=== PATIENT | male | born 1965 | race Caucasian/White ===

== ENCOUNTER 2017-09-26 10:12 | Emergency (ER) | payer OTHER ==
[~2017-09-26] VITALS: Ht 157.5 cm; Wt 95.0 kg
[2017-09-26 10:13] VITALS: BP 184/112; PULSE 75; RESP 14; TEMP 98.7; O2SAT 98
[2017-09-26] MEDS ORDERED: CYCL10TA PO (10:36)
[2017-09-26] MEDS ORDERED: TRAM50 PO (10:36)
--- NOTE | 2017-09-26 10:41 | PD ---
HPI . Low back pain Chief Complaint: Back/ Neck Pain or Injury Time Seen by Provider: 10:30 Travel History International Travel<30 days: No Contact w/Intl Traveler<30days: No Traveled to known affect area: No History of Present Illness HPI Patient presents with a chief complaint of low back pain which started acutely after lifting a heavy wheel barrel full of mulch 2 days ago. Pain is located in his right low back. It is exacerbated by movement. It is rated 9/10. It has been somewhat relieved by a single dose of ibuprofen. He denies any bowel or bladder incontinence or retention. He denies any perineal anesthesia. He denies any leg weakness. He has not been running a fever. [facility] Social History Tobacco Use: No Allergies-Medications (Allergen,Severity, Reaction): Coded Allergies: No Known Allergies (Unverified , 09/26/17) Reported Meds & Prescriptions Reported Meds & Active Scripts Active Flexeril (Cyclobenzaprine HCl) 10 Mg Tab 10 Mg PO TID Ultram (Tramadol HCl) 50 Mg Tab 50 Mg PO Q4H PRN Review of Systems Except as stated in HPI: all other systems reviewed are Neg General / Constitutional: No: Fever, Chills Genitourinary: No: Incontinence Musculoskeletal: Positive: Myalgias, Pain (right low back pain) Neurologic: No: Weakness, Paresthesia, Incontinence Physical Exam Narrative GENERAL: Awake and alert and in no acute distress. SKIN: Warm and dry. HEAD: Normocephalic/atraumatic. EYES: Pupils are equal. Extraocular movements are intact. NECK: Normal range of motion. CARDIOVASCULAR: Regular rate and rhythm. RESPIRATORY: Nonlabored respirations. MUSCULOSKELETAL: Atraumatic. Tenderness in the paraspinous muscles of the right low back. NEUROLOGICAL: Nonfocal. PSYCHIATRIC: Appropriate mood and affect. Data Data Last Documented VS Vital Signs Date Time Temp Pulse Resp B/P (MAP) Pulse Ox O2 Delivery O2 Flow Rate FiO2 09/26/17 10:13 98.7 75 14 184/112 (136) 98 Orders Orders Ed Discharge Order (09/26/17 10:38) [facility] Medical Decision Making Medical Screen Exam Complete: Yes Emergency Medical Condition: Yes Differential Diagnosis Differential diagnosis includes but is not limited to muscular low back pain, DDD, spinal stenosis, epidural abscess, sciatica, kidney infection or stone. Narrative Course This patient presents complaining with right low back pain after lifting something heavy a couple of days ago. He does not have any concerning signs or symptoms. He has tenderness in the right paraspinous muscles with pain exacerbated by movement. He will be treated for a low back strain with Ultram and Flexeril. Diagnosis Primary Impression: Low back strain Qualified Codes: S39.012A - Strain of muscle, fascia and tendon of lower back , initial encounter Patient Instructions: General Instructions, Low Back Strain (ED) Departure Forms: Tests/Procedures Scripts Cyclobenzaprine (Flexeril) 10 Mg Tab 10 MG PO TID for Muscle Spasm, #30 TAB 0 Refills Prov: Luh Russo MD 09/26/17 Tramadol (Ultram) 50 Mg Tab 50 MG PO Q4H Y for PAIN, #12 TAB 0 Refills Prov: Luh Russo MD 09/26/17 Disposition: 01 DISCHARGE HOME Condition: Stable Luh Russo MD Sep 26, 2017 10:41
== END 2017-09-26 11:15 | disposition home or self-care (01) ==
LOC: NEPD 10:12
DX: S39.012A Strain of muscle, fascia and tendon of lower back, initial encounter (principal); X50.0XXA Overexertion from strenuous movement or load, initial encounter; Y93.89 Activity, other specified
CPT/HCPCS: 99284

== ENCOUNTER 2018-01-09 21:42 | Emergency (ER) | payer OTHER ==
[~2018-01-09] VITALS: Ht 157.5 cm; Wt 98.8 kg
[~2018-01-09 21:42] MED LIST: CYCL10TA PO; TRAM50 PO
[2018-01-09 21:48] VITALS: BP 160/93; PULSE 76; RESP 18; TEMP 97.9; O2SAT 97
[2018-01-09] MEDS ORDERED: GABA300C5 PO (22:03)
[2018-01-09] MEDS ORDERED: LISI-515 PO (22:03)
[2018-01-09 22:33] LABS: BICARBONATE 29.4 MEQ/L (21.0-32.0); CALCIUM 8.6 MG/DL (8.5-10.1)
--- NOTE | 2018-01-09 22:35 | RADRPT ---
EXAM DATE/TIME: 01/09/2018 22:10 [place] COMPARISON: No previous studies available for comparison. INDICATIONS : Joint pain in foot. MEDICAL HISTORY : None. SURGICAL HISTORY : None. ENCOUNTER: Initial ACUITY: 1 day PAIN SCORE: 10/10 LOCATION: Left foot, plantar 1st MCPJ FINDINGS: Three view examination of the left foot demonstrates no dislocation, or fracture. There is some soft tissue swelling at the first metatarsophalangeal joint. The tarsal bones appear intact. The interph alangeal and metatarsophalangeal joints are intact. The calcaneus is intact. Bony mineralization is normal. CONCLUSION: 1. Soft tissue swelling at the first metatarsal-phalangeal joint. 2. Otherwise, unremarkable exam for patient's age. Anirudh Lopez MD on January 09, 2018 at 22:31 Board Certified Radiologist. This report was verified electronically.
[2018-01-09 22:37] LABS: CREATININE 1.2 MG/DL (0.60-1.30)
--- NOTE | 2018-01-09 22:47 | PD ---
HPI Chief Complaint: Pain: Acute or Chronic Time Seen by Provider: 21:54 Travel History International Travel<30 days: No Contact w/Intl Traveler<30days: No Traveled to known affect area: No History of Present Illness HPI Patient presents to the emergency department stating that he has a history of gout that was first diagnosed 2 months ago at a hospital in [place]. States that no labs or x-rays were done to confirm the diagnosis. Advises that he was given some pills but unsure of the name. Presents to the ER complaining of pain in the first toe of the left foot. He denies any trauma injury to the affected extremity, fever, chills, nausea, or vomiting. States symptoms are consistent with his initial presentation for gout at the outside hospital. PFSH Past Medical History Diminished Hearing: No Gout: Yes Hypertension: Yes ?: Not Past Surgical History Other Surgery: Yes (HERNIA ) Social History Alcohol Use: No Tobacco Use: No Substance Use: No Allergies-Medications (Allergen,Severity, Reaction): Coded Allergies: No Known Allergies (Unverified , 01/09/18) Reported Meds & Prescriptions Reported Meds & Active Scripts Active Tramadol (Tramadol HCl) 50 Mg Tab 50 Mg PO Q6H PRN 3 Days Prednisone 20 Mg Tab 40 Mg PO DAILY 5 Days Take 40 mg (2 tablets) daily for 5 days Reported Gabapentin 300 Mg Cap 300 Mg PO BID Lisinopril 20 Mg Tab 20 Mg PO DAILY Review of Systems Except as stated in HPI: all other systems reviewed are Neg Physical Exam Narrative GENERAL: No acute distress. SKIN: Focused skin assessment warm/dry. HEAD: Atraumatic. Normocephalic. EYES: Extraocular muscles intact bilaterally. No scleral icterus. No injection or drainage. ENT: No nasal bleeding or discharge. Mucous membranes pink and moist. NECK: Trachea midline. No JVD. CARDIOVASCULAR: Regular rate and rhythm. No murmur appreciated. RESPIRATORY: No accessory muscle use. Clear to auscultation. Breath sounds equal bilaterally. GASTROINTESTINAL: Abdomen soft, non-tender, nondistended. Hepatic and splenic margins not palpable. MUSCULOSKELETAL: Left foot: Sensation intact, 2+ DP pulse, tender to palpation at the base of the first toe with swelling. NEUROLOGICAL: Awake and alert. No obvious cranial nerve deficits. Motor grossly within normal limits. Normal speech. PSYCHIATRIC: Appropriate mood and affect; insight and judgment normal. Data Data Last Documented VS Vital Signs Date Time Temp Pulse Resp B/P (MAP) Pulse Ox O2 Delivery O2 Flow Rate FiO2 01/09/18 21:48 97.9 76 18 160/93 (115) 97 Orders Orders Basic Metabolic Panel (Bmp) (01/09/18 22:02) Foot, Complete (Cyt4yss) (01/09/18 22:02) Uric Acid (01/09/18 22:02) Labs Laboratory Tests Test 01/09/18 22:15 Blood Urea Nitrogen 14 MG/DL Creatinine 1.20 MG/DL Random Glucose 152 MG/DL Calcium Level 8.6 MG/DL Uric Acid 9.0 MG/DL Sodium Level 140 MEQ/L Potassium Level 3.5 MEQ/L Chloride Level 104 MEQ/L Carbon Dioxide Level 29.4 MEQ/L Anion Gap 7 MEQ/L Estimat Glomerular Filtration Rate 63 ML/MIN MDM Medical Decision Making Medical Screen Exam Complete: Yes Emergency Medical Condition: Yes Interpretation(s) Labs: Glucose slightly increased; uric acid-> increased Last Impressions Foot X-Ray 01/09/182201 Signed Impressions: Service Date/Time: Thursday, January 09, 2018 22:10 - CONCLUSION: 1. Soft tissue swelling at the first metatarsal-phalangeal joint. 2. Otherwise, unremarkable exam for patient's age. Anirudh Lopez MD Differential Diagnosis Gout, arthritis, nonspecific musculoskeletal pain, fracture, dislocation Narrative Course Patient presents to the emergency department complaining of pain in the first great toe left foot. States that he has a history of gout but no prior blood work or radiographic studies were done to confirm the diagnosis. Will get x- ray of left foot and will check basic chem and uric acid. Physician Communication Physician Communication Spoke to Dr. Avalos (?) in ER at [facility] in [place] where the patient stated he was initially diagnosed and treated for gout. Patient had a XR and d/c 'd with prednisone 40mg QD x 5 days, traamdol 50mg, and cataflam 50mg TID prn x 7 days for gout when he presented to their facility. He states that the medicine helped him "alot." Diagnosis Primary Impression: Gout Qualified Codes: M1A.9XX0 - Chronic gout, unspecified, without tophus (tophi) Patient Instructions: General Instructions, Gout (ED) Additional Instructions: 1. Meds as directed. 2. Follow-up with primary care doctor in 24-48 hours. 3. Return to the emergency department for fever, vomiting, increased pain and/ or swelling in the affected extremity, bleeding, inability to urinate, or for any new/worrisome/worsening symptoms. Med/Other Pt SpecificInfo: Prescription(s) given Scripts Tramadol (Tramadol) 50 Mg Tab 50 MG PO Q6H Y for PAIN for 3 Days, #12 TAB 0 Refills Prov: Ashlie Majano MD 01/09/18 Prednisone (Prednisone) 20 Mg Tab 40 MG PO DAILY for 5 Days, #10 TAB 0 Refills Take 40 mg (2 tablets) daily for 5 days Prov: Ashlie Majano MD 01/09/18 Disposition: 01 DISCHARGE HOME Condition: Stable Ashlie Majano MD January 09, 2018 22:47
[2018-01-09] MEDS ORDERED: PRED20 PO (23:47)
[2018-01-09] MEDS ORDERED: TRAM50TA PO (23:59)
[2018-01-10] MEDS ORDERED: predniSONE 20 MG TAB PO ONE (00:15)
[2018-01-10] MEDS ORDERED: traMADol HCL 50 MG TAB PO ONE (00:15)
[2018-01-10 00:23] VITALS: BP 156/86
== END 2018-01-10 00:25 | disposition home or self-care (01) ==
LOC: PHEFT 21:42
DX: M1A.9XX0 Chronic gout, unspecified, without tophus (tophi) (principal); I10 Essential (primary) hypertension
CPT/HCPCS: 73630; 80048; 84550; 99284; J7512